=== PATIENT | male | born 1960 | race Caucasian/White ===

== ENCOUNTER 2018-03-11 11:43 | Emergency (ER) | payer BC ==
[2018-03-11] MEDS ORDERED: Bacitracin Zinc 1 Packet ONE ×2 (12:07→12:29)
--- NOTE | 2018-03-11 12:36 | RAD ---
RIGHT FOOT 3 VIEWS: HISTORY: Trauma, right foot pain. FINDINGS/IMPRESSION: No fracture, dislocation, or bone destruction is seen. A small plantar calcaneal spur is present. POS: [facility]
== END 2018-03-11 14:33 | disposition home or self-care (01) ==
LOC: ERS 11:43
DX: T25.221A Burn of second degree of right foot, initial encounter (principal); T25.231A Burn of second degree of right toe(s) (nail), initial encounter; I10 Essential (primary) hypertension; E78.5 Hyperlipidemia, unspecified; Z79.899 Other long term (current) drug therapy; X12.XXXA Contact with other hot fluids, initial encounter
CPT/HCPCS: 16020

== ENCOUNTER 2018-09-16 08:57 | Outpatient (CLI) | payer BC ==
--- NOTE | 2018-09-16 10:04 | RAD ---
THREE VIEWS SACRUM/COCCYX: Comparison: None. History: Tailbone pain. FINDINGS: Three views of the sacrum/coccyx shows no evidence of fracture. The sacral ala are symmetric in appea armani. The sacral ala joints are unremarkable. IMPRESSION: No significant sacral or coccygeal abnormality. POS: [facility]
== END 2018-09-16 08:58 | disposition home or self-care (01) ==
LOC: RAD 08:57
PROVIDERS: ATTEND Nurse Practitioner Family
DX: M53.3 Sacrococcygeal disorders, not elsewhere classified (principal)
CPT/HCPCS: 72220

== ENCOUNTER 2019-01-25 12:33 | Outpatient (CLI) | payer BC ==
--- NOTE | 2019-01-25 14:12 | MRI ---
MRI LUMBAR SPINE: DATE: 01/25/2019. PROVIDED CLINICAL HISTORY: Coccydynia. FINDINGS: Five lumbar vertebral bodies are assumed. Lumbar alignment appears normal. Vertebral body heights a ppear preserved. Interval disk space heights appear preserved. No focal concerning regional marrow signal abnormality is evident. The conus medullaris is normal in signal and terminates at an appropr iate level. At L1-2, there is no significant central canal or foraminal narrowing apparent. At L2-3, there is no significant central canal or foraminal narrowing apparent. At L3-4, there is no significant central canal or foraminal narrowing apparent. At L4-5, there is mild bilateral facet arthritis without significant central canal or foraminal narro wing apparent. At L5-S1, there is no significant central canal or foraminal narrowing apparent. IMPRESSION: 1. No evidence for significant central canal or foraminal narrowing. 2. Mild lower lumbar spine facet arthritis. POS: OFF
== END 2019-01-25 12:34 | disposition home or self-care (01) ==
LOC: SCSMRI 12:33
PROVIDERS: ATTEND Nurse Practitioner Family
DX: M53.3 Sacrococcygeal disorders, not elsewhere classified (principal); M47.816 Spondylosis without myelopathy or radiculopathy, lumbar region
CPT/HCPCS: 72148